=== PATIENT | male | born 1985 | race Caucasian/White ===

== ENCOUNTER → 2021-03-15 | Outpatient (CLI) | payer OTHER ==
--- NOTE | 2021-03-15 10:10 | 2DMMODE ---
[facility] [place] [address] 2 D/M-MODE ECHOCARDIOGRAM Name: MARISOL GLEASON Room #: REG [facility]#: [id number] Admission: 03/15/21 Attend Phys: Dario Hamilton MD Discharge: Date of : 85 Report #: [id number] THIS REPORT FOR: cc: Mahesh Lainez Alan Z. DO Park, Jin S. MD ~ APPROVED REPORT Study performed: 03/15/2021 10:05:30 EXAM: Comprehensive 2D, Doppler, and color-flow Echocardiogram Patient Location: Out-Patient Status: routine BSA: 2.53 HR: 75 bpm BP: 128/78 mmHg Rhythm: NSR Other Information Study Quality: Good Indications Atrial Fibrillation Palpitations Syncope 2D Dimensions RVDd: 32.00 mm IVSd: 10.00 (7-11mm) LVOT Diam: 28.00 (18-24mm) LVDd: 58.00 mm PWd: 10.00 (7-11mm) Ascending Ao: 35.00 (22-36mm) LVDs: 38.00 (25-40mm) Left Atrium: 39.00 (27-40mm) Aortic Root: 38.00 mm Volumes Left Atrial Volume (Systole) Single Plane 4CH: 48.56 mL Single Plane 2CH: 61.72 mL LA ESV Index: 24.00 mL/m2 Aortic Valve AoV Peak Antoni.: 1.06 m/s AO Peak Gr.: 4.49 mmHg LVOT Max P.18 mmHg [facility] [address] [place] [address] 2 D/M-MODE ECHOCARDIOGRAM Name: GELYRILEYMARISOLNIKI RON Room #: REG [facility]#: [id number] Admission: 03/15/21 Attend Phys: Dario Hamilton MD Discharge: Date of : 85 Report #: [id number] LVOT Max V: 0.89 m/s MAYRA Vmax: 5.09 cm2 Mitral Valve E/A Ratio: 1.4 MV Decel. Time: 189.34 ms MV E Max Antoni.: 0.67 m/s MV A Antoni.: 0.49 m/s MV PHT: 54.91 ms IVRT: 86.51 ms Pulmonary Valve PV Peak Antoni.: 0.87 m/s PV Peak Gr.: 3.03 mmHg Pulmonary Vein P Vein S: 0.37 m/s P Vein D: 0.54 m/s P Vein S/D Ratio: 0.69 Tricuspid Valve TR Peak Antoni.: 1.75 m/s RAP Estimate: 5.00 mmHg TR Peak Gr.: 12.25 mmHg PA Pressure: 17.00 mmHg Left Ventricle The left ventricle is normal size. There is normal LV segmental wall motion. There is normal left ventricular wall thickness. Left ventricular systolic function is normal. LVEF is 55-60%. The left ventricular diastolic function is normal. Right Ventricle The right ventricle is normal size. The right ventricular systolic function is normal. Atria The left atrium size is normal. The right atrium size is normal. Aortic Valve The aortic valve is normal in structure. No aortic regurgitation is present. There is no aortic valvular stenosis. Mitral Valve The mitral valve is normal in structure. Trace mitral regurgitation. No evidence of mitral valve stenosis. [facility] [place] [address] 2 D/M-MODE ECHOCARDIOGRAM Name: GELYRILEYMARISOL ARIADNE Room #: REG [facility]#: [id number] Admission: 03/15/21 Attend Phys: Dario Hamilton MD Discharge: Date of : 85 Report #: [id number] Tricuspid Valve The tricuspid valve is normal in structure. Trace tricuspid regurgitation. Estimated PAP is 17mmHg. Pulmonic Valve The pulmonary valve is normal in structure. Trace pulmonic regurgitation. Great Vessels The aortic root is normal in size. The ascending aorta is normal in size. IVC is normal in size and collapses >50% with inspiration. Pericardium There is no pericardial effusion. <Conclusion> The left ventricle is normal size. There is normal left ventricular wall thickness. Left ventricular systolic function is normal. The right ventricle is normal size. The left atrium size is normal. The aortic valve is normal in structure. Trace mitral regurgitation. Trace tricuspid regurgitation. Estimated PAP is 17mmHg. <ELECTRONICALLY SIGNED> By: Dario Hamilton MD 03/15/21 1010 1010 1010 Dario Hamilton MD /INF
== END ==
LOC: CV 08:56
PROVIDERS: ATTEND Internal Medicine Cardiovascular Disease
DX: R00.2 Palpitations (principal)

== ENCOUNTER → 2021-03-24 | Outpatient (CLI) | payer OTHER | LOC: SJCVCIMAG 08:54 | PROVIDERS: ATTEND Internal Medicine Cardiovascular Disease | DX: I48.91 Unspecified atrial fibrillation (principal) ==

== ENCOUNTER → 2021-04-22 | Outpatient (CLI) | payer OTHER | LOC: CAT 04-21 11:22 | PROVIDERS: ATTEND Internal Medicine Cardiovascular Disease | DX: I48.91 Unspecified atrial fibrillation (principal) ==

== ENCOUNTER 2021-04-26 09:35 | Observation (INO) | payer OTHER ==
[~2021-04-26] VITALS: Ht 203.2 cm; Wt 113.4 kg
[2021-04-26] VITALS (9 sets, daily range): BP systolic 108–130; BP diastolic 69–84
[2021-04-26 10:19] LABS: ABSOLUTE NEUTROPHILS 2.1 thou/uL (1.4-8.2); BASOPHILS 0.7 % (0.0-2.0); EOSINOPHILS 3.6 % (0.0-3.0); HEMATOCRIT 45.3 % (42.0-52.0); HEMOGLOBIN 15.4 gm/dL (14.0-18.0); LYMPHOCYTES 43.1 % (24.0-44.0); MCHC 33.9 g/dL (28.0-37.0); MCV 79.6 fL (80.0-100.0); MONOCYTES 10.1 % (1.0-8.0); PLATELET COUNT 225 thou/uL (150-400); POLYS 42.5 % (36.0-66.0); RBC 5.68 mil/uL (4.50-6.00); RDW 13.5 % (10.5-14.5); WBC 4.9 thou/uL (4.0-11.0)
[2021-04-26 10:29] LABS: CALCIUM 8.8 mg/dL (8.5-10.1); CREATININE 1.3 mg/dL (0.7-1.3)
[2021-04-26] MEDS ORDERED: ADDERALL 20 MG20 MG PO (10:33)
[2021-04-26] MEDS ORDERED: XARELTO20 MG PO (10:35)
[2021-04-26 10:36] LABS: ALBUMIN 4.2 g/dL (3.4-5.0); APTT 30.1 Seconds (24.5-32.8); INR 0.98; PROTIME 10.7 Seconds (10.5-12.1); TOTAL BILIRUBIN 0.4 mg/dL (0.2-1.0)
[2021-04-26] MEDS ORDERED: TOPROL XL25 MG PO (10:37)
[2021-04-26] MEDS ORDERED: BACTRIM DS TAB1 EAC1 PO (10:37)
[2021-04-26] MEDS ORDERED: SUPER THERAVIT1 EACH PO (10:38)
--- NOTE | 2021-04-26 19:57 | NUR ---
Pt arrived to unit at 1530 from [employer]. Pt had AFIB ablation done. insertion site is right groin with caryn dressing. Pt ended bedrest at 1800. Pt is A&Ox4, VS stable and afebrile. pt is NSR with good pulses (2/2). insertion site is clean, dry and intact, no hemotoma. No reports of pain. Pt stated some discomfort in throat from extubation. No current concerns. Continue to monitor.
--- NOTE | 2021-04-26 23:02 | NUR ---
PT ADMITTED INTO ROOM 219 FROM THE ED-AT AROUND 2044. PT IS ALERT AND ORIENTED X 4.SHE JUST SEEMS TIRED ND SLEEPY. SHE C/O CHRONIC BACK PAIN.VPACED ON TELEMETRY.TERAN TO D/D WITH DARK YELLOW U/O. PT IS ON ROOM AIR AND NO S/SX OF DISTRESS NOTED.PT DENIES ANY VISON CHANGES, WEARS PRESCRIPTION GLASSES..PRAFO BOOTS IN PLACE. WOUNDS TO BOTTOM AND LLE-WILL TAKE PICS.PT WITH RIGHT ARM FLACCIDITY. SHE HAS BLE WEAKNESS-REPORTS THAT IT IS NO MORE THAN USUAL. NO COUGH NOTED, AFEBRILE.WILL CONTINUE WITH POC TILL EOS.
[2021-04-27 01:10] VITALS: BP 105/63
--- NOTE | 2021-04-27 04:00 | NUR ---
UNEVENTFUL NIGHT. SR ON TELEMETRY. RIGHT GROIN WITH NO HEMATOMA.UP AD RAY. VOIDING GOOD. DENIES ANY CHEST PAIN OR DYSPNEA. LOOKING FORWARD TO D/C TODAY.
[2021-04-27 07:00] VITALS: BP 108/67
[2021-04-27 10:11] VITALS: BP 108/67
--- NOTE | 2021-04-27 10:49 | NUR ---
ASSESSMENT CHARTED - MED PER JUN - NO CO'S OF PAIN OR NAUSEA - MURPHY DIET AND FLUIDS. UP AD RAY IN ROOM. GROIN SITE C/D/I. HOME THIS AM - INSTRUCTION RE HOME MEDS/ CAREAND FOLLOW UP GIVEN TO PATIENT AND . STATED UNDERSTANDING OF INSTRUCTION GIVEN. NO CO'S AT TIME OF D/C. LEFT UNIT AMBULATORY HOME VIA PVT VEHICLE ACCOMPAANIED BY .
--- NOTE | 2021-05-03 08:28 | P ---
[facility] [place] [address] PROCEDURE REPORT Name: MARISOL GLEASON Room #: 213-P [facility] Miguelito Bustillo.[facility]#: [id number] Admission: 04/26/21 Attend Phys: Louie Rodriguez MD Discharge: 04/27/21 Date of : 85 Report #: [id number] THIS REPORT FOR: cc: Mahesh Lainez Alan Z. DO Couchonnal, Luis F. MD ~ DATE OF SERVICE: 04/26/2021 PREOPERATIVE DIAGNOSIS: Paroxysmal atrial fibrillation. POSTOPERATIVE DIAGNOSIS: Paroxysmal atrial fibrillation. PROCEDURES PERFORMED: 1. Atrial fibrillation ablation, CPT code 61516. 2. 3D mapping, CPT code 18090. 3. Intracardiac echocardiogram, CPT code 79852. HISTORY: The patient is a 35-year-old male with a history of paroxysmal AFib and a strong family history of AFib who is here for ablation. ANESTHESIA: The patient underwent general anesthesia with no anesthesia-related complications. DESCRIPTION OF PROCEDURE: The patient underwent informed consent. He was then brought to the EP laboratory in a fasting and sedated state, prepped and draped in standard fashion. I obtained access to the right femoral vein x 3, placing an 8, 9 and 7-Kazakh short sheath using the modified Seldinger technique. At baseline, the patient was in sinus rhythm. The patient was systemically heparinized and a transseptal was performed using an SL1 sheath and a Grandfalls needle. This was straightforward and I exchanged the SL1 sheath with the cryo sheath and placed the Lasso catheter in the left atrium. I then created a 3D geometry of the left atrium using the Lasso catheter. I then started isolating the pulmonary veins. As I engaged the left superior pulmonary vein with the cryoballoon the patient went into atrial fibrillation. The left superior pulmonary vein underwent a 3-minute freeze and isolated at 42 seconds. The left inferior pulmonary vein underwent a 45-second freeze and isolated at 11 seconds. I came off as the temperatures were at -55 degrees. I performed another freeze that was of 49 seconds' duration. Again, I came off early. I therefore performed 3 additional freezes; one of 130 seconds' duration, one of 100 seconds' duration, and one of 180 seconds' durations all with lower temperatures and less engaged with the pulmonary vein. I then went to the right-sided veins. The right superior pulmonary vein underwent a 3-minute freeze isolating at 11 seconds. The right inferior pulmonary vein underwent a 70-second freeze and isolated at 14 seconds. I came off early as the temperatures were cold. I performed 2 additional 100-second freezes. Next, I repeated a voltage map of the left atrium and this showed that all the pulmonary veins were isolated. [address] [address] PROCEDURE REPORT Name: MARISOL GLEASON Room #: 213-P [facility]#: [id number] Admission: 04/26/21 Attend Phys: Louie Rodriguez MD Discharge: 04/27/21 Date of : 85 Report #: [id number] There was evidence of independent firing of the left superior pulmonary vein. The patient then underwent a 200-joule synchronized cardioversion with hoahaoism of sinus rhythm. Atrial burst pacing was performed and AV block was noted at 340 milliseconds. Atrial ERP was noted at 230 milliseconds at [address] cycle length. There were short bursts of atrial tachycardia with a single atrial extrastimuli lasting about 4-5 beats in duration, but there were no sustained atrial or ventricular arrhythmias. As such, the procedure was concluded. There was no evidence of pericardial effusion. The patient received systemic protamine, and all catheters and sheaths were pulled. Hemostasis obtained. The patient awoke neurologically and hemodynamically intact. No complications. No significant bleeding. CONCLUSIONS: 1. Successful AFib ablation with isolation of the pulmonary veins. 2. Normal EP study with no inducible arrhythmias. <ELECTRONICALLY SIGNED> By: Louie Rodriguez MD 05/03/21 0828 [id number] Louie Rodriguez MD /nt
== END 2021-04-27 10:45 | disposition home or self-care (01) ==
LOC: CATH → 2N 16:42 → CATH 16:43 → 2N 04-27 10:45
PROVIDERS: ADMIT Internal Medicine Cardiovascular Disease; ATTEND Internal Medicine Cardiovascular Disease
DX: I48.0 Paroxysmal atrial fibrillation (principal); Z20.822 Contact with and (suspected) exposure to COVID-19; R55 Syncope and collapse; F90.9 Attention-deficit hyperactivity disorder, unspecified type; Z79.82 Long term (current) use of aspirin; Z79.899 Other long term (current) drug therapy; Z88.8 Allergy status to other drugs, medicaments and biological substances
CPT/HCPCS: 62110; 62900; 65040; 70005